=== PATIENT | female | born 1970 | race Caucasian/White ===

== ENCOUNTER → 2023-04-24 | Outpatient (CLI) | payer OTHER ==
--- NOTE | 2023-04-25 08:48 | CT ---
EXAMINATION TYPE: CT sinus wo con DATE OF EXAM: 04/24/2023 COMPARISON: None HISTORY: Difficulty breathing out of left side of nose, hx of polyp, hearing loss in left ear. CT DLP: 544.[address] of the paranasal sinuses was performed in the axial and coronal planes. Bone and soft tissue settings are submitted. The paranasal sinuses demonstrate normal aeration and development. Mucous retention cyst or polyp at the base of the left maxillary sinus measures approximately 2.1 x 2 .0 cm. There is mild mucosal thickening of several ethmoid air cells. The osteal meatal units are patent bilaterally. The nasal septum is midline. No bony destructive changes are seen within the field of view. IMPRESSION: Mucous retention cyst or polyp at the base of the left maxillary sinus measures approximately 2.1 x 2 .0 cm. There is mild mucosal thickening of several ethmoid air cells.
== END | disposition home or self-care (01) ==
LOC: RADCTMAIN 15:46
PROVIDERS: ATTEND Family Medicine
DX: J34.89 Other specified disorders of nose and nasal sinuses (principal); J32.9 Chronic sinusitis, unspecified; H91.92 Unspecified hearing loss, left ear; J34.1 Cyst and mucocele of nose and nasal sinus; J33.8 Other polyp of sinus; R06.00 Dyspnea, unspecified
CPT/HCPCS: 70486